=== PATIENT | male | born 1945 | race Caucasian/White ===

== ENCOUNTER 2016-11-22 15:09 | Observation (INO) ==
[~2016-11-22 15:09] MED LIST: *HR* Etomidate 40 MG/20 ML VIAL IVP ONE
--- NOTE | 2016-11-22 15:13 | Emergency Department Note ---
Disposition Clinical Impression: Altered mental status Qualifiers: Altered mental status type: disorientation Qualified Code(s): R41.0 - Disorientation, unspecified Disposition: Admitted As Inpatient Condition: Serious Altered Mental Status HPI - General Chief Complaint: ED General Medical Stated Complaint: GENERAL ILLNESS Time Seen by Provider: 11/22/16 15:11 Source: patient, EMS Mode of arrival: EMS Limitations: altered mental status, physical limitation Nursing Notes Reviewed: Yes Vital Signs Reviewed: Yes - History of Present Illness HPI Narrative: The patient was reportedly seen earlier in the morning for lift assist having slid to the ground. He has had a little bit of pizza and took a nap. When he awakened about 2 his biologist noted him to be more slurred speech and he has been sent in for evaluation with concern for possible stroke syndrome. History is limited from the patient as he is able to indicate that he does not feel well but he cannot identify what is bothering. He denies headache or visual changes. He denies any chest pain, shortness of breath or abdominal pain. He has not been having vomiting or diarrhea. He did not have any reported injury from his earlier fall. He points to his left arm where he had 2 IV attempts as his area of pain. He is noted to have a moist cough snoring respirations when not stimulated. He has been brought in by EMS and had a blood sugar of 153. EMS noted he had a bottle of trazodone by his bed that was prescribed in August but still had a good number of pills. The patient had indicated that he had taken one. MD complaint: altered mental status Onset (ago): hour(s) Timing confirmed by: caregiver Pain Severity: mild Consistency of Symptoms: waxing and waning Context: other (Cerebral palsy) Associated symptoms: Reports: loss of appetite, malaise, weakness, foul smelling urine. Denies: chest pain, cough, diaphoresis, fever, chills, headaches, nausea/vomiting, rash, seizure, shortness of breath, syncope, difficulty walking, diarrhea, incontinence - Related Data Home Medications Medication Instructions Recorded Confirmed Fesoterodine Fumarate [Toviaz] 8 mg PO 11/22/16 Allergies Allergy/AdvReac Type Severity Reaction Status Date / Time No Known Allergies Allergy Verified 01/16/16 18:27 Limitations: ROS unobtainable due to patients medical condition Past Medical History - Past Medical History Attestation: Yes The following information was validated with the patient. Source: patient, old records reviewed, nursing notes reviewed Medical history: Reports: hyperlipidemia, hypertension, kidney stones, other ( Cerebral palsy with lower extremity spasticity) Surgical history: Reports: appendectomy, cholecystectomy, orthopedic, other ( Left shoulder replacement and redo), other (Lithotripsy) Psychiatric history: Reports: no psych history - Social History Smoking Status: Never smoker Smokeless Tobacco Status: No Alcohol use: Reports: none Drug use: Reports: none Physical Exam - General Limitations: altered mental status, physical limitation General appearance: other (Sleeping and sluggish) - Head Head exam: atraumatic, normocephalic, normal inspection - Eye Eye exam: Present: normal appearance, PERRL, EOMI. Absent: scleral icterus, conjunctival injection - ENT ENT exam: normal exam, normal oropharynx, mucous membranes moist - Neck Neck exam: Present: normal inspection, full ROM, trachea midline - Chest Chest inspection: Present: normal inspection, symmetric chest wall rise. Absent : tenderness - Respiratory Respiratory exam: Present: normal lung sounds bilaterally. Absent: respiratory distress, wheezes, prolonged expiratory phase - Cardiovascular Cardiovascular exam: Present: regular rate, normal rhythm, normal heart sounds - Abdominal Exam Abdominal exam: Present: soft, Non-Tender, normal bowel sounds. Absent: tenderness, distention, guarding, rebound, rigidity - Extremities Exam Extremities exam: Present: normal inspection, normal capillary refill, other ( Patient has good function in the upper extremities although he demonstrates some tremor.). Absent: full ROM (Lower extremities are held extended.), tenderness, pedal edema - Expanded Lower Extremity Exam Neurovascular/Tendon exam: Present: normal capillary refill Gait: not tested/not observed - Neurological Exam Neurological exam: Present: alert. Absent: motor sensory deficit - Psychiatric Psychiatric exam: Present: normal mood, flat affect - Skin Skin exam: Present: warm, dry, intact, normal color. Absent: rash, diaphoresis , pallor Course Course Narrative: With return of all lab, EKG and imaging, the patient is sleeping somewhat slurred speech but is more bright and interactive. It is unclear the etiology of his altered mental status but it appears likely to be medication related. I do not see evidence for sepsis, acute metabolic disorder or central cause such as an encephalopathy or stroke. I discussed care with Dr. Vera is agreeable on having him in for observation with neuro checks. We are contacting Al to get an accurate list of his medications. About an hour and a half after the patient's admission, calls a rapid response for a decreased level of consciousness. The patient has now become unarousable with a sternal rub. He is maintaining respiration, oxygenation and blood pressure. He has with pupils 2 mm, looking downward and starting to show some decerebrate posturing with his arms. The etiology for this is unclear but will mandate transfer to an elevated level of care. He has received a milligram of Narcan with no effect. He has received etomidate 10 is intubated orotracheally with a 7.5-Polish endotracheal tube with good bilateral breath sounds and color change. He has been started on a Diprivan drip. I have spoken with the patient 's daughter and coordinated helicopter transport to [facility]. Prior to his discharge I have reviewed his chest x-ray and recommended withdrawing the endotracheal tube 2 cm. The neurologist ever recited recommend a CT head be performed and this was done just prior to his transfer. About a half hour after his transfer I was called by the radiologist with the following results: CT/CT head/brain wo con IMPRESSION: Motion artifact limits evaluation. Diffuse density of the cerebral vessels is seen, most prominently involving the basilar artery. This could be related to dehydration, although vessel thrombosis involving the basilar artery cannot be entirely excluded. Consider further evaluation with CTA of the head. Questionable loss of lacey-white differentiation in the occipital lobes, left greater than right. Critical results were called by Dr. Mehran Biggs MD to Ran Trinidad on 11/22/2016 at 22:39. I did advise the radiologist that the patient was no longer at this facility and that he would be in [place] emergency department. He advised that he would call there to try to track him down to give further report. The ultimate cause of this patient's neurologic deterioration is unclear at this time. He was transferred in guarded condition. Vital Signs Temperature 99.7 F H 11/22/16 15:13 Pulse Rate 82 11/22/16 15:13 Respiratory Rate 18 11/22/16 15:13 Blood Pressure 161/79 11/22/16 15:13 O2 Sat by Pulse Oximetry 97 11/22/16 15:13 Temperature 99.0 F 11/22/16 18:53 Pulse Rate 79 11/22/16 18:53 Respiratory Rate 17 11/22/16 18:53 Blood Pressure 155/87 11/22/16 18:53 O2 Sat by Pulse Oximetry 95 11/22/16 23:39 Oxygen Delivery Oxygen Delivery Room Air Procedures - Intubation Time out performed: Yes sedative: Etomidate Mg Given: 20 Laryngoscope: Traci ET Tube Size: 7.5 ET Tube Uncuffed: No Tube Secured Depth (cm): 24 Tube Secured Location: lips Tube Placement Confirmation: visualized tube passing through cords, equal breath sounds bilaterally, no breath sounds over epigastrium, confirmation by capnometry Patient Tolerated Procedure: well, no complications Intubation Complications: none Altered Mental Status - Differential Diagnosis Likely: altered mental status, delirium, hypoglycemia, hyponatremia, sepsis - Medical Records Medical records reviewed: Yes I reviewed the patient's medical records. - Lab Data Lab results reviewed: Yes I reviewed the patient's lab results. Result diagrams: 11/22/16 15:35 11/22/16 15:35 Lab Results 11/22/16 11/22/16 11/22/16 Range/Units 15:21 15:35 15:35 WBC 11.6 H (4.3-11.1) K/mcL RBC 5.93 H (4.19-5.50) M/mcL Hgb 17.8 H (12.9-16.9) g/dL Hct 51.0 H (37.5-50.1) % MCV 86.0 (83.0-100.0) fL MCH 30.0 (28.0-33.3) pg MCHC 34.9 (31.6-35.5) g/dL RDW 13.2 (11.5-14.5) % Plt Count 260 (140-400) K/mcL MPV 10.3 (9.4-12.4) fL Immature Gran % 0.4 (0-4) % Seg Neutrophils % 81.9 % Lymphocytes % 11.6 % Monocytes % 5.4 % Eosinophils % 0.1 % Basophils % 0.6 % Neutrophils # 9.5 H (1.6-8.9) K/mcL Lymphocytes # 1.4 (0.6-4.6) K/mcL Monocytes # 0.6 (0.0-1.3) K/mcL Eosinophils # 0.0 (0.0-0.6) K/mcL Basophils # 0.1 (0.0-0.2) K/mcL PT 12.4 H (9.4-12.1) Seconds INR 1.1 APTT 32.5 (26.0-36.0) Seconds VBG Lactic Acid (0.5-2.2) mmol/L Sodium (136-145) mEq/L Potassium (3.5-4.5) mEq/L Chloride (98-109) mEq/L Carbon Dioxide (19-29) mEq/L BUN (8-26) mg/dL Creatinine (0.72-1.25) mg/dL Est GFR ( Amer) (> 60) Est GFR (Non-Af Amer) (> 60) BUN/Creatinine Ratio (6-26) Glucose (70-99) mg/dL POC Glucose 136 H (58-89) Calculated Osmolality (280-300) Calcium (8.6-10.8) mg/dL Total Bilirubin (0.2-1.2) mg/dL Direct Bilirubin (0.0-0.5) mg/dL Indirect Bilirubin (0.0-1.2) mg/dL AST (5-34) Units/L ALT (0-55) Units/L Alkaline Phosphatase (38-126) Units/L Troponin I (0-0.03) ng/mL Serum Total Protein (6.0-8.3) g/dL Albumin (3.5-5.0) g/dL Globulin (2.4-3.5) g/dL Albumin/Globulin Ratio (1.1-2.2) Urine Color (Yellow) Urine Clarity (Clear) Urine pH (5.0-8.0) pH Units Ur Specific [place] (1.010-1.025) Urine Protein (Neg-Trace) mg/dL Urine Glucose (UA) (Normal) mg/dL Urine Ketones (Negative) mg/dL Urine Blood (Negative) Urine Nitrite (Negative) Urine Bilirubin (Negative) Urine Urobilinogen (Normal) mg/dL Ur Leukocyte Esterase (Negative) Urine Microscopic RBC (0-3) per hpf Urine Microscopic WBC (0-3) per hpf Ur Squamous Epith Cells (None-Few) per lpf Ur Transition Epith Cell (None-Few) per hpf Amorphous Sediment (Few) Urine Mucus (Few) Ur Culture Indicated? (NO) 11/22/16 11/22/16 11/22/16 Range/Units 15:35 15:35 15:35 WBC (4.3-11.1) K/mcL RBC (4.19-5.50) M/mcL Hgb (12.9-16.9) g/dL Hct (37.5-50.1) % MCV (83.0-100.0) fL MCH (28.0-33.3) pg MCHC (31.6-35.5) g/dL RDW (11.5-14.5) % Plt Count (140-400) K/mcL MPV (9.4-12.4) fL Immature Gran % (0-4) % Seg Neutrophils % % Lymphocytes % % Monocytes % % Eosinophils % % Basophils % % Neutrophils # (1.6-8.9) K/mcL Lymphocytes # (0.6-4.6) K/mcL Monocytes # (0.0-1.3) K/mcL Eosinophils # (0.0-0.6) K/mcL Basophils # (0.0-0.2) K/mcL PT (9.4-12.1) Seconds INR APTT (26.0-36.0) Seconds VBG Lactic Acid 2.2 (0.5-2.2) mmol/L Sodium 139 (136-145) mEq/L Potassium 4.2 (3.5-4.5) mEq/L Chloride 105 (98-109) mEq/L Carbon Dioxide 20 (19-29) mEq/L BUN 20 (8-26) mg/dL Creatinine 1.03 (0.72-1.25) mg/dL Est GFR ( Amer) > 60 (> 60) Est GFR (Non-Af Amer) > 60 (> 60) BUN/Creatinine Ratio 19 (6-26) Glucose 140 H (70-99) mg/dL POC Glucose (58-89) Calculated Osmolality 293 (280-300) Calcium 9.6 (8.6-10.8) mg/dL Total Bilirubin 0.7 (0.2-1.2) mg/dL Direct Bilirubin 0.3 (0.0-0.5) mg/dL Indirect Bilirubin 0.4 (0.0-1.2) mg/dL AST 21 (5-34) Units/L ALT 27 (0-55) Units/L Alkaline Phosphatase 120 (38-126) Units/L Troponin I 0.01 (0-0.03) ng/mL Serum Total Protein 7.9 (6.0-8.3) g/dL Albumin 4.1 (3.5-5.0) g/dL Globulin 3.8 H (2.4-3.5) g/dL Albumin/Globulin Ratio 1.1 (1.1-2.2) Urine Color (Yellow) Urine Clarity (Clear) Urine pH (5.0-8.0) pH Units Ur Specific [place] (1.010-1.025) Urine Protein (Neg-Trace) mg/dL Urine Glucose (UA) (Normal) mg/dL Urine Ketones (Negative) mg/dL Urine Blood (Negative) Urine Nitrite (Negative) Urine Bilirubin (Negative) Urine Urobilinogen (Normal) mg/dL Ur Leukocyte Esterase (Negative) Urine Microscopic RBC (0-3) per hpf Urine Microscopic WBC (0-3) per hpf Ur Squamous Epith Cells (None-Few) per lpf Ur Transition Epith Cell (None-Few) per hpf Amorphous Sediment (Few) Urine Mucus (Few) Ur Culture Indicated? (NO) 11/22/16 Range/Units 16:17 WBC (4.3-11.1) K/mcL RBC (4.19-5.50) M/mcL Hgb (12.9-16.9) g/dL Hct (37.5-50.1) % MCV (83.0-100.0) fL MCH (28.0-33.3) pg MCHC (31.6-35.5) g/dL RDW (11.5-14.5) % Plt Count (140-400) K/mcL MPV (9.4-12.4) fL Immature Gran % (0-4) % Seg Neutrophils % % Lymphocytes % % Monocytes % % Eosinophils % % Basophils % % Neutrophils # (1.6-8.9) K/mcL Lymphocytes # (0.6-4.6) K/mcL Monocytes # (0.0-1.3) K/mcL Eosinophils # (0.0-0.6) K/mcL Basophils # (0.0-0.2) K/mcL PT (9.4-12.1) Seconds INR APTT (26.0-36.0) Seconds VBG Lactic Acid (0.5-2.2) mmol/L Sodium (136-145) mEq/L Potassium (3.5-4.5) mEq/L Chloride (98-109) mEq/L Carbon Dioxide (19-29) mEq/L BUN (8-26) mg/dL Creatinine (0.72-1.25) mg/dL Est GFR ( Amer) (> 60) Est GFR (Non-Af Amer) (> 60) BUN/Creatinine Ratio (6-26) Glucose (70-99) mg/dL POC Glucose (58-89) Calculated Osmolality (280-300) Calcium (8.6-10.8) mg/dL Total Bilirubin (0.2-1.2) mg/dL Direct Bilirubin (0.0-0.5) mg/dL Indirect Bilirubin (0.0-1.2) mg/dL AST (5-34) Units/L ALT (0-55) Units/L Alkaline Phosphatase (38-126) Units/L Troponin I (0-0.03) ng/mL Serum Total Protein (6.0-8.3) g/dL Albumin (3.5-5.0) g/dL Globulin (2.4-3.5) g/dL Albumin/Globulin Ratio (1.1-2.2) Urine Color Yellow (Yellow) Urine Clarity Clear (Clear) Urine pH 6.0 (5.0-8.0) pH Units Ur Specific [place] 1.025 (1.010-1.025) Urine Protein 30 H (Neg-Trace) mg/dL Urine Glucose (UA) Normal (Normal) mg/dL Urine Ketones Trace H (Negative) mg/dL Urine Blood Moderate H (Negative) Urine Nitrite Negative (Negative) Urine Bilirubin Small H (Negative) Urine Urobilinogen 4.0 H (Normal) mg/dL Ur Leukocyte Esterase Negative (Negative) Urine Microscopic RBC 50-100 H (0-3) per hpf Urine Microscopic WBC 0-3 (0-3) per hpf Ur Squamous Epith Cells Few (None-Few) per lpf Ur Transition Epith Cell Many H (None-Few) per hpf Amorphous Sediment Few (Few) Urine Mucus Many H (Few) Ur Culture Indicated? NO (NO) - Radiology Data Radiology results reviewed: Yes I reviewed the patient's radiology results. Angle view chest x-ray is performed. This does not demonstrate acute infiltrate , effusion, pneumothorax or heart failure. The cardiac silhouette is normal. This is on my interpretation. CT head is performed. This is reviewed on bone and soft tissue windows. There is no evidence for acute intracranial bleed, shift, mass or edema. Patient has cerebral atrophy present. Mastoids and sinuses appear normal. There is no fracture evident. This is on my interpretation. Impressions Chest X-Ray 11/22/16 15:11 IMPRESSION: No evidence for acute cardiopulmonary process. Cardiomegaly. D/ / 11/22/2016 17:01:21 Eugene Schmidt MD / dhaval Interpreting Provider: Eugene Schmidt MD Head CT 11/22/16 15:12 IMPRESSION: 1. No acute intracranial abnormality. 2. Diffuse cerebral atrophy with chronic small vessel ischemic disease. D/ / Albert Godoy MD / Albert Godoy MD Interpreting Provider: Albert Godoy MD - EKG Data EKG attestation: Yes I reviewed and interpreted this EKG. EKG shows normal: sinus rhythm, axis, intervals, QRS complexes, ST-T waves Rate: normal Interpretation: no acute changes, normal EKG TPA Checklist - LKW: 3-4.5 hrs Add. Contraindications Patient/family understanding: The patient/family members have been counseled and understood the risk, benefit , and alternatives of treatment. Critical Care Time Critical Care Time: Yes Total Critical Care Time: 45 Attestation: As this patient did present with signs and symptoms of potential life- threatening illness requiring my urgent intervention, total critical care time in this patient's care has been 45 minutes, not withstanding separately reportable procedures.
[2016-11-22 15:45] LABS: Basophils # 0.1 K/mcL (0.0-0.2); Basophils % 0.6 %; Eosinophils % 0.1 %; Hemoglobin 17.8 g/dL (12.9-16.9); Immature Granulocytes % 0.4 % (0-4); Lymphocytes % 11.6 %; Mean Corpuscular HGB Conc 34.9 g/dL (31.6-35.5); Mean Platelet Volume 10.3 fL (9.4-12.4); Monocytes # 0.6 K/mcL (0.0-1.3); Monocytes % 5.4 %; Neutrophils # 9.5 K/mcL (1.6-8.9); Platelet Count 260 K/mcL (140-400); Red Blood Count 5.93 M/mcL (4.19-5.50); Red Cell Distribution Width 13.2 % (11.5-14.5); Segmented Neutrophils % 81.9 %
[2016-11-22 15:48] LABS: Lymphocytes # 1.4 K/mcL (0.6-4.6)
[2016-11-22 15:50] LABS: INR 1.1; Prothrombin Time 12.4 Seconds (9.4-12.1)
[2016-11-22 15:53] LABS: Activated Partial Thrombo Time 32.5 Seconds (26.0-36.0)
[2016-11-22 16:03] LABS: Alanine Aminotransferase 27 Units/L (0-55); Albumin 4.1 g/dL (3.5-5.0); Albumin/Globulin Ratio 1.1 (1.1-2.2); Alkaline Phosphatase 120 Units/L (38-126); Aspartate Amino Transferase 21 Units/L (5-34); BUN/Creatinine Ratio 19 (6-26); Bilirubin,Direct 0.3 mg/dL (0.0-0.5); Bilirubin,Indirect 0.4 mg/dL (0.0-1.2); Bilirubin,Total 0.7 mg/dL (0.2-1.2); Blood Urea Nitrogen 20 mg/dL (8-26); Calcium 9.6 mg/dL (8.6-10.8); Carbon Dioxide 20 mEq/L (19-29); Chloride 105 mEq/L (98-109); Globulin 3.8 g/dL (2.4-3.5); Glucose 140 mg/dL (70-99); Osmolality,Calculated 293 (280-300); Potassium 4.2 mEq/L (3.5-4.5); Sodium 139 mEq/L (136-145); Total Protein 7.9 g/dL (6.0-8.3); eGFR For African Americans > 60 (> 60); eGFR For Non-African Americans > 60 (> 60)
[2016-11-22 16:25] LABS: Bilirubin,Urine Small (Negative); Blood,Urine Moderate (Negative); Clarity,Urine Clear (Clear); Color,Urine Yellow (Yellow); Glucose,Urine (UA) Normal (Normal); Ketones,Urine Trace mg/dL (Negative); Leukocyte Esterase,Urine Negative (Negative); Nitrite,Urine Negative (Negative); Protein,Urine 30 mg/dL (Neg-Trace); Specific Gravity,Urine 1.025 (1.010-1.025)
[2016-11-22] MEDS ORDERED: Ondansetron 4 MG/2 ML VIAL IVP ONE (16:29)
[2016-11-22 16:34] LABS: Amorphous Sediment,Urine Few (Few); Mucus,Urine Many (Few); RBC,Urine 50-100 per hpf (0-3); Squamous Epithelial Cell,Urine Few per lpf (None-Few); Transitional Epi Cells,Urine Many per hpf (None-Few); WBC,Urine 0-3 per hpf (0-3)
[2016-11-22] MEDS ORDERED: MOM Conc 10 ML UD.LIQ PO PRN (18:57)
[2016-11-22] MEDS ORDERED: 0.9 % Sodium Chloride 1,000 ML IVC SCH (18:57)
[2016-11-22] MEDS ORDERED: Ondansetron 4 MG/2 ML VIAL IVP PRN (18:57)
[2016-11-22] MEDS ORDERED: *HR* Promethazine 25 MG/ML VIAL IVP PRN (18:57)
[2016-11-22] MEDS ORDERED: Naloxone 0.4 MG/ML INJ IVP PRN (18:57)
[2016-11-22] MEDS ORDERED: Acetaminophen 325 MG TABLET PO PRN (18:57)
[2016-11-22 20:13] LABS: ABG Base Excess -0.6 mEq/L (-2.0 to 3.0); ABG HCO3 23.8 mEQ/L (21-27); ABG Oxygen Saturation 97 % (95-98); ABG PCO2 38 mmHg (35-45); ABG PH 7.41 pH Units (7.32-7.45); ABG PO2 86 mmHg (85-104); Blood Gas Liter Flow 3 L/MIN
[2016-11-22] MEDS ORDERED: *HR* Etomidate 20 MG/10 ML AMPUL IVP ONE (20:15)
[2016-11-22] MEDS ORDERED: *HR* Propofol 200 MG/20 ML VIAL IVP ONE (20:19)
[2016-11-22 20:25] LABS: Amphetamine Screen,Urine Negative ng/mL (Cutoff=1000); Barbiturate Screen,Urine Negative ng/mL (Cutoff=200); Benzodiazepines Screen,Urine Negative ng/mL (Cutoff=200); Cannabinoid Screen,Urine Negative ng/mL (Cutoff = 50); Cocaine Screen,Urine Negative ng/mL (Cutoff= 300); Opiate Screen,Urine Negative ng/mL (Cutoff=300); Phencyclidine Screen,Urine Negative ng/mL (Cutoff=25)
[2016-11-22] MEDS ORDERED: Propofol 500 MG/50 ML INFUS..BTL IVC SCH (21:00)
--- NOTE | 2016-11-24 09:15 | Electrocardiograph Report ---
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
--- NOTE | 2016-11-24 09:21 | Electrocardiograph Report ---
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
[2016-11-25 08:50] VITALS: BP 155/87
--- NOTE | 2016-11-25 17:30 | Internal Med History&Physical ---
Date of Encounter: 11/25/16 Time of Encounter: 17:28 Internal Medicine - H&P: HPI History of present illness: Mr. Mar is a 71 year old male who was admitted to [facility] through emergency room after he presented for possible stroke symptoms. He had mental status changes after arriving to [facility] floor. Dr. Trinidad came from emergency room and evaluated him and he was transferred to [facility] following elective intubation. He was transferred before I saw him. Past Med Surg Social Fam HX - Past Medical History Medical history: hyperlipidemia, hypertension, kidney stones, other (Cerebral palsy with lower extremity spasticity) Psychiatric history: no psych history - Past Surgical History Surgical History: appendectomy, cholecystectomy, orthopedic, other (Left shoulder replacement and redo), other (Lithotripsy) - Social History Smoking Status: Never smoker Smokeless Tobacco Status: No Alcohol use: none Drug use: none Internal Medicine - H&P: Meds Fesoterodine Fumarate [Toviaz] 8 mg PO 11/22/16 [History] Allergies No Known Allergies Allergy (Verified 01/16/16 18:27) All Systems PM: A 10-system review of systems was performed and is negative for pertinent findings except as documented above in the HPI. - Constitutional Vitals: Temp Pulse Resp BP Pulse Ox 99.0 F 79 17 155/87 95 11/22/16 18:53 11/22/16 18:53 11/22/16 18:53 11/22/16 18:53 11/22/16 23:39 Internal Med - H&P Results - Labs CBC & Chem 7: 11/22/16 15:35 11/22/16 15:35 - ABG Interpretation ABG results: 11/22/16 20:00 ABG pH 7.41 ABG pCO2 38 ABG pO2 86 ABG HCO3 23.8 ABG Total CO2 25.0 ABG O2 Saturation 97 ABG Base Excess -0.6 - Impressions ITS Impressions Chest X-Ray 11/22/16 20:36 IMPRESSION: The ETT is approximately 1.7 cm above the hernando. Stable cardiomegaly. Low lung volumes. Mild pulmonary vascular congestion. Small left pleural effusion. D/ / Navi Bernard MD / Navi Bernard MD Interpreting Provider: Navi Bernard MD Head CT 11/22/16 20:50 IMPRESSION: Motion artifact limits evaluation. Diffuse density of the cerebral vessels is seen, most prominently involving the basilar artery. This could be related to dehydration, although vessel thrombosis involving the basilar artery cannot be entirely excluded. Further evaluation with CTA of the head is recommended. Questionable loss of lacey-white differentiation in the left occipital lobe, concerning for early acute infarct. Critical results were called by Dr. Mehran Biggs MD to Ran Trinidad on 11/22/2016 at 22:39. D/ / 11/22/2016 22:43:24 Mehran Biggs MD / Roya Bustillos Interpreting Provider: Mehran Biggs MD
--- NOTE | 2016-11-25 17:31 | Discharge Summary ---
Date of Encounter: 11/25/16 Time of Encounter: 17:30 - Discharge Medications Home Medications: Fesoterodine Fumarate [Toviaz] 8 mg PO 11/22/16 [History] Allergies/Adverse Reactions: Allergies No Known Allergies Allergy (Verified 01/16/16 18:27) Procedures/tests Complete & Pending: Procedures Performed prior 72 hours Category Date Time Status CT head/brain wo con [CT] Routine Cat Scan 11/22/16 20:50 Completed ECG 12 lead ECG [ECG] Stat Y 11/22/16 20:05 Completed Date of admission: 11/22/16 18:35 Primary care physician: Quan Bertrand MD - Patient Status Disposition: Transfer Intermediate Care Fac Condition: Serious - Discharge Instructions Follow Up With: Quan Bertrand MD [Primary Care Provider] - 1 week Hospital course: Mr. Mar is a 71 year old male who was admitted to [facility] through emergency room after he presented for possible stroke symptoms. He had mental status changes after arriving to [facility] floor. Dr. Trinidad came from emergency room and evaluated him and he was transferred to [facility] following elective intubation. He was transferred before I saw him. - Time Spent with Patient Total time spent providing and/or coordinating discharge services: - Constitutional Vitals: Temp Pulse Resp BP Pulse Ox 99.0 F 79 17 155/87 95 11/22/16 18:53 11/22/16 18:53 11/22/16 18:53 11/22/16 18:53 11/22/16 23:39
== END 2016-11-22 21:24 | disposition short-term general hospital (02) ==
LOC: INPPIK 15:09 → EMEROOPIK 15:09 → INPPIK 18:38
PROVIDERS: ADMIT Internal Medicine; ATTEND Internal Medicine